=== PATIENT | female | born 1990 | race Caucasian/White ===

== ENCOUNTER 2020-09-12 21:55 | Emergency (ER) | payer BC ==
[~2020-09-12] VITALS: Ht 167.6 cm; Wt 56.2 kg
--- NOTE | 2020-09-12 22:00 | NUR ---
PT BROUGHT IN BY PARTNER WITH C/O LEFT ANKLE INJURY. NO SWELLING OR BRUISING NOTED AT THIS TIME, SKIN IS INTACT AT INJURY SITE. PL /10. LEFT LEG ELEVATED. PT A/O X4, NO SOB OR LABORED BREATHING, AFEBRILE.
--- NOTE | 2020-09-12 22:15 | NUR ---
DR. ALCANTAR AT BEDSIDE, MSE IN PROGRESS.
[2020-09-12] MEDS ORDERED: ACETAMINOPHEN ES 500 MG TABLET PO ONE (22:30)
[2020-09-12] MEDS ORDERED: MORPHINE SULFATE 4 MG/1 ML DISP.SYRIN IM ONE (22:30)
[2020-09-12] MEDS ORDERED: MORPHINE SULFATE 4 MG/1 ML DISP.SYRIN ONE (22:38)
[2020-09-12] MEDS ORDERED: ACETAMINOPHEN ES 500 MG TABLET ONE (23:25)
--- NOTE | 2020-09-12 23:35 | NUR ---
Patient discharged to home in stable condition. Written and verbal after care instructions given. Steady gait, instructions for crutches implemented, Patient verbalizes understanding of instructions. Accompanied by partner. Stressed follow up or return to ER for worsening s/s. No c/o pain or discomfort.
[2020-09-12 23:36] VITALS: BP 114/62
== END 2020-09-12 23:37 | disposition home or self-care (01) ==
LOC: ER 21:58
DX: O9A.212 Injury, poisoning and certain other consequences of external causes complicating pregnancy, second trimester (principal); S93.602A Unspecified sprain of left foot, initial encounter; W03.XXXA Other fall on same level due to collision with another person, initial encounter; Y92.89 Other specified places as the place of occurrence of the external cause; Z3A.16 16 weeks gestation of pregnancy
CPT/HCPCS: 73630; 96372; 99283; J2270; A4663; A9150

== ENCOUNTER 2024-05-22 21:51 | Emergency (ER) | payer BC ==
[~2024-05-22] VITALS: Ht 167.6 cm; Wt 60.3 kg
[2024-05-22 23:27] VITALS: BP 110/62; TEMP 97.8; O2SAT 99
== END 2024-05-22 23:29 | disposition home or self-care (01) ==
LOC: ER 21:51
DX: S39.012A Strain of muscle, fascia and tendon of lower back, initial encounter (principal); S29.012A Strain of muscle and tendon of back wall of thorax, initial encounter; S16.1XXA Strain of muscle, fascia and tendon at neck level, initial encounter; V43.52XA Car driver injured in collision with other type car in traffic accident, initial encounter; Y93.89 Activity, other specified; Y92.410 Unspecified street and highway as the place of occurrence of the external cause; Y99.8 Other external cause status
CPT/HCPCS: A4606; A4663